=== PATIENT | male | born 1980 | race Caucasian/White ===

== ENCOUNTER → 2024-08-15 07:30 | Outpatient (REF) | payer BC, SELFPAY | LOC: HWRAD 07:30 | PROVIDERS: ATTENDING PHYSICIAN Physician Assistant; FAMILY PHYSICIAN Family Medicine | DX: R10.11 Right upper quadrant pain (principal) | CPT/HCPCS: 76700 ==

== ENCOUNTER 2024-08-17 12:44 | Emergency (ER) | payer BC, SELFPAY ==
[2024-08-17 12:48] VITALS: BP 157/89
[2024-08-17 13:06] LABS: % Basophils 0.8 % (0-2); % Eosinophils 2.5 % (0-6); % Immature Granulocytes 0.2 % (0-0.5); % Lymphocytes 35.1 % (20.5-51.1); % Monocytes 9.5 % (1.7-9.3); % Neutrophils 51.9 % (42.2-75.2); Absolute Eosinophils 0.1 10^3/uL (0-0.7); Absolute Lymphocytes 1.8 10^3/uL (1.2-3.4); Absolute Monocytes 0.5 10^3/uL (0.1-0.6); Absolute Neutrophils 2.7 10^3/uL (1.4-6.5); Hematocrit 40.4 % (39.0-52.0); Hemoglobin 14.2 g/dL (13.0-18.0); Mean Corp Hgb Conc. 35.1 g/dL (33.0-37.0); Mean Corpuscular Hgb 29.6 pg (27.0-31.0); Mean Corpuscular Volume 84.2 fL (80.0-94.0); Mean Platelet Volume 9.3 fL (7.4-10.4); Nucleated Red Blood Cells % 0 % (-); Platelet Count 314 10^3/uL (130-400); Red Cell Dist. Width 11.9 % (11.5-14.5); White Blood Cell Count 5.2 10^3/uL (4.8-10.8)
[2024-08-17 13:15] LABS: Urine Albumin Negative (Neg - Trace); Urine Bilirubin Negative (Negative); Urine Character Clear (Clear); Urine Color Yellow; Urine Glucose Negative (Negative); Urine Ketone Negative (Negative); Urine Leukocyte Negative (Negative); Urine Nitrite Negative (Negative); Urine Occult Blood Negative (Negative); Urine Specific Gravity 1.015 (<1.030); Urine Urobilinogen Negative (Neg - 1+)
[2024-08-17 13:23] LABS: ALT (SGPT) 25 U/L (0-50); AST (SGOT) 32 U/L (17-59); Albumin 4.4 g/dl (3.5-5.0); Alkaline Phosphatase 54 U/L (38-126); Blood Urea Nitrogen 17 mg/dl (9-20); Carbon Dioxide 30 mmol/L (22-30); Chloride 104 mmol/L (98-107); Glucose 102 mg/dl (70-99); Potassium 4.1 mmol/L (3.5-5.1); Sodium 140 mmol/L (135-145); Total Bilirubin 0.8 mg/dl (0.2-1.3); Total Protein 7.3 g/dl (6.3-8.2); eGFR > 60.00
[2024-08-17 13:46] LABS: Lipase 69 U/L (23-300)
--- NOTE | 2024-08-17 14:32 | ED.GENMED ---
History of Present Illness
General
Chief Complaint: Flank Pain
Source: patient
Time Seen by Provider: 08/17/24 14:23
History of Present Illness
History of Present Illness:
43-year-old male presents to the emergency room complaining of a fullness in his right upper quadrant. Symptoms have been present for 3 to 4 weeks. Symptoms seem worse with eating. He feels like he has a lot of belching. The pain exists in the
right upper abdomen and right lower thorax and does seem to radiate to his back. He denies vomiting. His stool is a bit loose but not true diarrhea. Patient drinks alcohol perhaps once a week. He denies smoking or drug use. He has had no
previous abdominal operations. He did have an ultrasound performed recently and received a call yesterday that his ultrasound was normal. He occasionally takes ibuprofen for the discomfort which does help temporarily.
Past History
Past History
ED Past Medical History: None and Other
Patient has exhibited threatening behavior?: No
Social History
Tobacco: Non-smoker
Alcohol: Occasional
Personal: Single
Living: with family
Employment: Employed
Family History
Family History: Other (He has a father with pancreatic cancer)
Phy Exam
Physical Exam
Physical Exam:
General: Awake, Alert, Oriented X3. No acute distress.
Vitals: unremarkable
Head: Atraumatic
Eyes: Pupils equal, EOMI
Throat: Airway intact, no exudates
Neck: Trachea midline
Chest: No tenderness palpation of the thorax.
Lungs: Clear and equal b/l
Heart: Regular rate, no murmurs
Abd: Soft, no reproducible tenderness on exam, No pulsatile mass
Neuro: Nonfocal
Skin: Warm, dry, no rash
Extremities: pulses equal b/l, no edema
Course
Orders/Labs/Results
Orders:
Orders
08/17/24 12:54
Complete Blood Count/With Diff Urgent
Comprehensive Metabolic Panel Urgent
Lipase Urgent
08/17/24 12:57
Urinalysis Reflex To Culture Urgent
Date Specimen was Collected: 08/17/24
Time Specimen was Collected: 12:51
08/17/24 14:31
Ketorolac [Toradol] 15 mg IV NOW STA
08/17/24 15:11
D-Dimer Urgent
08/17/24 16:02
CT Abd/pelvis W Iv Cont Urgent
Comment:
Reason For Exam: upper abd pain
Abnormal Lab Results
08/17/24
12:54
Monocytes % 9.5 H %
(1.7-9.3)
Glucose 102 H mg/dl
(70-99)
08/17/24 12:54
08/17/24 12:54
Vital Signs
Initial and Last Documented VS:
Initial Vital Signs
Temp Pulse Resp BP Pulse Ox
98.4 F 63 18 157/89 100
08/17/24 12:48 08/17/24 12:48 08/17/24 12:48 08/17/24 12:48 08/17/24 12:48
Last Documented Vital Signs
Temp Pulse Resp BP Pulse Ox
98.4 F 53 15 144/83 100
08/17/24 12:48 08/17/24 18:00 08/17/24 18:00 08/17/24 18:00 08/17/24 18:00
MDM/Problems Addressed
Differential Diagnosis Includes:
Kidney stone, cholecystitis, biliary colic, pancreatitis
MDM/Problems Addressed:
I reviewed the patient's ultrasound from the other day. Labs here are reassuring. CT obtained which shows no acute inflammatory process. Patient does have moderate stool burden. Perhaps the patient suffering from constipation. Recommend MiraLAX
for now. He is to make an appointment with GI for follow-up.
*Critical Care Note
Total Time (30-74mins, 75-104mins- exclusive of procedures): Not Applicable
ED Attending Note
-
Portions of this chart may have been created with voice recognition software.� Occasional wrong word or��sound alike� substitutions may have occurred due to the inherent limitations of voice recognition software.
Discharge Plan
Departure
Patient Disposition: Home (Routine Discharge)
Date of Disposition: 08/17/24
Time of Disposition: 18:01
Patient with high blood pressure during this ER visit?: No
Condition: Good
Discharge Problem:
Abdominal pain, Constipation
Instructions: Constipation in adults, Abdominal Pain
Prescriptions:
No Action
cyclobenzaprine 10 MG tablet
10 mg PO TIDPRN PRN (Reason: muscle spasms) Qty: 30 0RF
ibuprofen 600 MG tablet
600 mg PO TIDPRN PRN (Reason: pain) Qty: 30 0RF
hydrocodone-acetaminophen 1 TABLET tablet
1 - 2 tab PO Q4HPRN PRN (Reason: severe pain) Qty: 14 0RF
finasteride 5 MG tablet
5 mg PO DAILY
oxycodone-acetaminophen 5 MG/325 MG tablet
1 tab PO Q4HPRN PRN (Reason: pain) Qty: 15 0RF
methylprednisolone [Medrol (Christopher)] 4 MG tablets,dose pack
4 tab PO . DIRECT Qty: 1 0RF
Referrals:
Alberto Ledesma DO [Family Provider] -
Trina Severino MD [Active] -
Activity Restrictions/Additional Instructions:
You came to the emergency room today for evaluation of discomfort in the right upper abdomen. Your blood work here is normal. The CAT scan shows a fair amount of stool throughout the colon which may explain your symptoms. I would recommend using
MiraLAX 1-2 capfuls a day until you have adequate bowel movements. Your CAT scan also shows fatty infiltration of your liver which is not something which causes abdominal pain and your family doctor can follow-up 1. I have given you contact
information for our gastroenterologists. You should call make an appointment with their office particularly if your symptoms are not better with the MiraLAX.
Interventions
Interventions:
*Risk Screen - Suicide Last Done: 08/17/24 12:48
*General Assessment Last Done: 08/17/24 12:48
*Neglect/Abuse Screening Last Done: 08/17/24 12:48
*ED- Fall Risk Assessment Last Done: 08/17/24 14:25
*Nursing Disposition Last Done: 08/17/24 18:08
CO-Ihwqkr-Uecuzniohg Assessment Last Done: 08/17/24 14:28
ED-Male Genitourinary Assessment Last Done: 08/17/24 14:28
Discharge Date and Time
Discharge Date/Time: 08/17/24 18:09
Print Language: [place]
[2024-08-17] MEDS: TORADOL 15 MG IV (15:08)
[2024-08-17 15:11] VITALS: BP 129/81
[2024-08-17 15:15] VITALS: BMI 26.4
[2024-08-17 15:37] LABS: D-Dimer < 0.27 ug/mlFEU (0.00-0.50)
[2024-08-17 18:00] VITALS: BP 144/83
== END 2024-08-17 18:09 | disposition home or self-care (01) ==
LOC: EMR 12:44
PROVIDERS: Emergency Medicine; EMERGENCY PHYSICIAN Emergency Medicine; FAMILY PHYSICIAN Family Medicine
DX: R10.9 Unspecified abdominal pain (principal); K59.00 Constipation, unspecified
CPT/HCPCS: 99284; 96374; 74177; 80053; 81003; 83690; 85025; 85379; Q9967